=== PATIENT | female | born 1940 | race Caucasian/White ===

== ENCOUNTER 2016-05-16 15:12 | Inpatient (IN) | payer MEDICARE, OTHER ==
[2016-05-16 15:23] VITALS: BMI 27.8
--- NOTE | 2016-05-16 16:56 | EDPRACDOC ---
- General Information Chief Complaint: Dyspnea/Resp distress Stated Complaint: SHOB Time Seen by Provider: 05/16/16 16:49 Information Source: Patient Mode Of Arrival: Car Home Medications: Home Medications Furosemide [Lasix] 40 mg PO DAILY 07/02/12 Levothyroxine [Synthroid, Levoxyl] 75 mcg PO DAILY 07/02/12 Nebivolol HCl [Bystolic] 10 mg PO HS 07/02/12 Simvastatin [Zocor] 20 mg PO HS 07/02/12 Albuterol/Ipratropium Neb [Duoneb] 3 ml NEB Q4-6H PRN 07/08/12 Alprazolam [Xanax] 0.25 mg PO DAILY PRN 07/08/12 Montelukast Sodium [Singulair] 10 mg PO QHS 07/08/12 Probiotic Blend [Mallory Q] 1 each PO DAILY 07/08/12 Budesonide [Pulmicort] 0.25 mg NEB BID 05/16/16 Calcium Carbonate [Calcium] 1,200 mg PO DAILY 05/16/16 Hormone Eyal Shot 1 each IM .MONTHLY 05/16/16 Lisinopril [Prinivil] 10 mg PO DAILY PRN 05/16/16 Metoprolol Tartrate [Lopressor] 25 mg PO DAILY PRN 05/16/16 Osteoarthritis Shot 1 each IM .MONTHLY 05/16/16 Vitamin B Complex [B Complex] 1 each PO DAILY 05/16/16 Allergies/Adverse Reactions: Allergies Allergy/AdvReac Type Severity Reaction Status Date / Time morphine Allergy Nausea/Vomi Verified 05/16/16 15:23 ting Sulfa (Sulfonamide Allergy Unknown Verified 05/16/16 15:23 Antibiotics) - History of Present Illness HPI: COUGH, CONGESTION, SOB FOR 2 DAYS. DID NOT TAKE BP MEDS TODAY. LAST PNA 3 YERS AGO, HAD BEEN VERY SICK WITH PNA IN THE PAST. Shortness of Breath: Moderate ED Past Medical History - History Reviewed Yes Nurses notes reviewed and agree except as marked - Patient Medical History Cardiac History: Reports: Hypertension Respiratory History: Reports: Asthma, COPD, Chronic Bronchitis, Pneumonia, Emphysema Musculoskeletal History: Reports: Arthritis, Osteoarthritis Systemic History: Reports: Cancer, Hypothyroidism Surgical History: Reports: Hysterectomy - Family Medical History Reports: Hypertension (MOM, DAD), Diabetes (MOM), Cancer (DAD), Stroke (MOM), Cardiac Disorders (MOM, DAD) EDM Review of Systems - Review of Systems ROS Negative Except as Marked: Yes All systems reviewed and were negative except as marked Constitutional: Fever, Loss of Appetite Eyes: No Symptoms Reported Throat: No Symptoms Reported Mouth: No Symptoms Reported - Physical Exam Constitutional: Alert (Awake), No apparent distress Oriented to: Time, Person, Place Last recorded Vital Signs: Last Vital Signs Temp 98.2 F 05/16/16 15:20 Pulse 107 05/16/16 15:20 Resp 20 05/16/16 15:20 BP 199/93 H 05/16/16 15:20 Pulse Ox 97 05/16/16 15:20 Oxygen Pulse Oxygen Saturation 97 O2 Device Nasal Cannula Oxygen Flow Rate 2 Fraction of Inspired Oxygen ( FIO2) - HEENT Head: Normal ( normocephalic) Eye Exam: Normal (PERRL, EOMI, Sclera white) Oropharynx: Normal (Pharynx:Moist without exudate,Gums-no swelling) TMJ: Normal Nose: No Symptoms Reported (septum midline) Neck: Normal (FROM, trachea at midline) - Respiratory/Cardiovascular Respiratory: Rhonchi (B/L). negative: Normal - CTA Cardiovascular: Normal (RRR without murmur, gallop or rub) - GI Auscultation: Normal (NABS) Palpation: Normal (Soft,No rebound or guarding, non distended) Tenderness: Non tender Nobles's Sign: Negative - Musculoskeletal Back: Normal (Non-Tender) Extremities: Normal (Normal tone, Pulses 2+ No cyanosis or edema, FROM) - Integumentary Skin: Normal, Warm, Dry Lymphatics: Normal (no adenopathy) - Neurologic Memory Impaired: Normal Motor Function: Normal (Normal tone, Pulses 2+ No cyanosis or edema, FROM) Cranial Nerve: Normal (CN II-X11 intact sensation, strength 5/5) Cerebellar: Normal Mood Description: Normal Perception: Normal ED SOB MDM - Results Result Diagrams: 05/16/16 17:30 05/16/16 17:30 - EKG EKG #1 EKG Time: 17:24 -: Yes EKG interpreted by me Rate: bpm: 96 [place]: Normal Rhythm: NSR Block: None Hypertrophy: None ST: Normal Comments: normal ekg - Departure Yes I personally saw and evaluated the patient. 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
[2016-05-16] MEDS ORDERED: ALBUTEROL 0.083% 3 ML NEB NEB ONE (16:57)
[2016-05-16] MEDS ORDERED: Albuterol/Ipratropium Neb 3 ML NEB NEB ONE (16:57)
[2016-05-16 17:09] LABS: ALLEN'S TEST PASS; BEb 10.4 (+/- 2); TCO2 37.2 MMOL/L (23-27)
[2016-05-16 17:10] LABS: ABG Draw Site Right Radial
[2016-05-16 17:53] LABS: AUTOMATED BASOPHIL 1.1 % (0-2); AUTOMATED EOSINOPHIL 0.8 % (0-5); AUTOMATED LYMPH 23.1 % (17-44); AUTOMATED MONOCYTE 9.4 % (3-10); AUTOMATED NEUTROPHIL 65.6 % (45-76); MPV 9.5 fL (7.4-10.4)
[2016-05-16 17:59] LABS: BLOOD UREA NITROGEN 27 MG/DL (7-17); CALC CORRECTED 9.2 MG/DL (8.4-10.2); CALCIUM 8.8 MG/DL (8.4-10.2); CALCULATED OSMOLALITY 271 MOs/Kg (270-290); CHLORIDE 92 mEq/L (98-107); GLUCOSE 126 MG/DL (70-99); SODIUM LEVEL 137 mEq/L (137-146); TOTAL PROTEIN 6.7 G/DL (6.3-8.2)
[2016-05-16 18:06] LABS: PT-INR 1.1
--- NOTE | 2016-05-16 18:07 | DIRPT ---
CLINICAL DATA: Shortness of breath and fever. Cough, congestion for 2 days. EXAM: PORTABLE CHEST 1 VIEW COMPARISON: PET-CT 04/23/2015, chest radiographs 07/27/2012 FINDINGS: The lungs are hyperinflated with apical predominant emphysema. Bronchial thickening in the lower lobes, with questionable minimal patchy opacity at the right lung base. Heart size and mediastinal contours are normal, atherosclerosis noted of the aortic arch. No pulmonary edema, large pleural effusion or pneumothorax. The bones are under mineralized. IMPRESSION: Lower lobe bronchial thickening, with possible minimal patchy opacity at the right lung base, may reflect early pneumonia. Background emphysema. Electronically Signed By: Sagrario Peña M.D. On: 05/16/2016 18:04
[2016-05-16] MEDS ORDERED: CEFTRIAXONE 1 GM in D5W 100 ML IV ONE ×2 (18:15→21:36)
[2016-05-16] MEDS ORDERED: AZITHROMYCIN 500 MG in D5W 250 ML IV ONE (18:15)
--- NOTE | 2016-05-16 18:51 | HISTPHYS ---
- Chief Complaint shortness of breath - History of Present Illness PRIMARY CARE PROVIDER: Dr. Freitas HPI: The patient is a 76 yo woman with COPD and chronic respiratory failure on oxygen at home who presents with shortness of breath. Onset: about a week ago. Duration: intermittent. Character: can't get a good breath. Alleviated by: Nothing. Exacerbated by: Nothing. Associated Symptoms: Coughing productive of green sputum. Wheezing. Fever and chills. Had intermittent palpitations. This week had an episode of sharp pain going up the right posterior neck but resolved. Treatments: none at home except usual medications. Oxygen: 2.5 L NC O2 at home. She received her flu and pneumonia vaccinations approximately 05/06/16. - Medical History Cardiac History: Reports: Hypertension, Other (Frequently has tachycardia.) Respiratory History: Reports: COPD, Pneumonia, Other (Chronic respiratory failure, 2.5 L NC O2 at home.) GI/ History: Reports: Gastroesophageal Reflux (Schatzki's ring s/p dilatation , Dr. Chaudhary) Musculoskeletal History: Reports: Arthritis, Osteoarthritis Systemic History: Reports: Cancer (Breast: L (stage I) 20 yrs ago and R 2010 ( stage IIB).), Hypothyroidism ECHOCARDIOGRAM07/03/2012: EF > 55%. Left ventricular size, wall thickness, and systolic function are normal. Diastolic filling pattern indicates impaired relaxation. Mild aortic stenosis. Mild aortic regurgitation. Trace tricuspid regurgitation. EGD: 12/02/11, by Dr. Chaudhary: Schatzki ring status post esophageal dilatation. Small hiatal hernia. Oncology History: Followed by Dr. Zelda Sloan mastectomy over 20 years ago. Right breast cancer diagnosed 2010: Stage IIB ([id number]) hormone receptor positive right breast cancer ER/MI Positive. Her 2 Valencia negative. Ki 67 was 11%. Right mastectomy February [address] Smiley Pathology: 2.1 cm infiltrating ductal carcinoma with 1 intramammary node positive for metastasis. Patient was started on adjuvant hormonal head therapy with anastrozole in 2010 but she stopped it in 2011 because of abdominal pain. She started letrozole in 2013 that she was not compliant with the medication. A 2 cm mass in the right lateral chest wall was found in March 2015 to be an invasive ductal carcinoma (ER/MI Positive, her 2 Valencia negative) consistent with her primary breast cancer. PET scan revealed hypermetabolic activity in the mass and a hypermetabolic lesion in the left anterior acetabulum. The patient then decided she did not want aggressive chemotherapy. The patient was placed on monthly fulvestrant injections and denosumab, most recent injection 04/30/2016. - Surgical History Reports: Hysterectomy, Other (Bilateral mastectomy: L 20+yrs ago @[facility]. R 2010 @ [place], Dr. Smiley.) - Medictions/Allergies Allergies morphine Allergy (Verified 05/16/16 15:23) Nausea/Vomiting Sulfa (Sulfonamide Antibiotics) Allergy (Verified 05/16/16 15:23) Unknown DOES NOT REMEMBER Current Medication List: Reviewed Home Medications Furosemide [Lasix] 40 mg PO DAILY 07/02/12 Levothyroxine [Synthroid, Levoxyl] 75 mcg PO DAILY 07/02/12 Nebivolol HCl [Bystolic] 10 mg PO HS 07/02/12 Simvastatin [Zocor] 20 mg PO HS 07/02/12 Albuterol/Ipratropium Neb [Duoneb] 3 ml NEB Q4-6H PRN 07/08/12 Alprazolam [Xanax] 0.25 mg PO DAILY PRN 07/08/12 Montelukast Sodium [Singulair] 10 mg PO QHS 07/08/12 Probiotic Blend [Mallory Q] 1 each PO DAILY 07/08/12 Budesonide [Pulmicort] 0.25 mg NEB BID 05/16/16 Calcium Carbonate [Calcium] 1,200 mg PO DAILY 05/16/16 Hormone Eyal Shot 1 each IM .MONTHLY 05/16/16 Lisinopril [Prinivil] 10 mg PO DAILY PRN 05/16/16 Metoprolol Tartrate [Lopressor] 25 mg PO DAILY PRN 05/16/16 Nebulizer [Erapid Nebulizer] 1 each MC .UNKNOWN 05/16/16 Osteoarthritis Shot 1 each IM .MONTHLY 05/16/16 Vitamin B Complex [B Complex] 1 each PO DAILY 05/16/16 - Family History Reports: Hypertension (MOM, DAD), Diabetes (MOM), Cancer (DAD - lung cancer ( smoked)), Stroke (MOM), Cardiac Disorders (MOM, DAD), Respiratory Disorders ( Father: asthma) - Social History Travel Outside of [place] in the Last 3 Months?: No Smoking Status: Former smoker (Quit approx 2012. Previously 3ppd or more. Started 12yo. 180 pack-years) Social History: Denies: Alcohol Use, Substance Use Disorder - Review of Systems GENERAL: Fever and chills. Positive for fatigue/malaise. HEENT: No ear pain or discharge. No nasal discharge or bleeding. Has sore on inside of nostril. No throat pain or swelling. No eye pain or eye redness. RESPIRATORY: Cough, wheezing, and shortness of breath. CARDIOVASCULAR: No chest pain. Had intermittent palpitations. GI: No abdominal pain, nausea, vomiting, diarrhea, constipation, or bloody stool. NEUROLOGICAL: No headache or focal weakness. INTEGUMENT: no rashes, itching, or lesions. LYMPHATIC SYSTEM: no lymph node swelling or pain. MUSCULOSKELETAL: no pain or joint swelling. GENITOURINARY: No dysuria or hematuria. ENDOCRINE: No polyuria or polydipsia. HEME: No chronic anemia, bleeding. Positive for easy bruising. - Physical Exam Vital Signs: Initial Vitals Temperature 98.2 F 05/16/16 15:20 Pulse Rate 107 05/16/16 15:20 Respiratory Rate 20 05/16/16 15:20 Blood Pressure 199/93 H 05/16/16 15:20 Pulse Oxygen Saturation 97 05/16/16 15:20 Vital Signs - 24 hr 05/16/16 05/16/16 05/16/16 15:20 17:00 17:30 Temperature 98.2 F Pulse Rate 107 96 Respiratory 20 20 24 Rate Blood Pressure 199/93 H 145/81 Pulse Oxygen 97 98 Saturation 05/16/16 17:50 Temperature Pulse Rate 96 Respiratory 20 Rate Blood Pressure 135/73 Pulse Oxygen 98 Saturation Weight: 71.2 kg Height: 5 feet 3 inches BMI: 27.8 - Other Exam Other Exam Findings: GENERAL: Ill-appearing, well nourished, in acute distress. HEENT: Normocephalic, atraumatic; pupils equal and round. Nares patent, without discharge or bleeding. No oropharyngeal lesions or erythema. Mucous membranes are dry. NECK: is supple, no masses, trachea midline. RESPIRATORY: Clear to auscultation bilaterally. Chest wall movements are symmetric. No use of accessory muscles to breathe. Intermittent tachypnea. Bilateral inspiratory and expiratory wheezing. Rhonchi. No rales. CARDIOVASCULAR: Normal S1, S2. Murmur 2/6 systolic. No rubs, or gallops. PMI non -displaced. Carotids: no carotid bruits. No bradycardia or tachycardia. DP pulses 2+ bilaterally. GI: soft, nontender, non-distended, normal active bowel sounds. No hepatosplenomegaly. INTEGUMENT: Clean, dry, and intact. No rashes. No lesions. MUSCULOSKELETAL: Moving all extremities. No cyanosis. No clubbing. Edema: none bilaterally. NEUROLOGICAL: Cranial nerves 2-12 grossly intact. Motor 4/5 throughout. Reflexes : 2+ bilaterally. Babinski: toes downgoing bilaterally. Intact Finger to nose. Sensory grossly intact to light touch. Intact rapid alternating movements bilaterally. No pronator drift. PSYCHIATRIC: Fully oriented. Flat affect. LYMPHATIC: No cervical lymphadenopathy. No supraclavicular lymphadenopathy. - Lab Results Laboratory Results - last 24 hr 05/16/16 05/16/16 05/16/16 17:05 17:30 17:30 WBC 7.4 RBC 4.27 Hgb 12.9 Hct 38.0 MCV 89 MCH 30.2 MCHC 34.0 RDW 13.2 Plt Count 192 MPV 9.5 Neut % (Auto) 65.6 Lymph % (Auto) 23.1 [place] % (Auto) 9.4 Eos % (Auto) 0.8 Baso % (Auto) 1.1 Absolute Neuts (auto) 4.81 Absolute Lymphs (auto) 1.70 PT INR APTT Puncture Site Right radial pH 7.470 H pCO2 49.0 H pO2 74.0 L HCO3 35.7 H Total CO2 37.2 H Base Excess 10.4 H FiO2 % 2 lpm nc Specimen Drawn By Belja Sodium 137 Potassium 2.8 L Chloride 92 L Carbon Dioxide 33 Anion Gap 15 BUN 27 H Creatinine 1.10 H Estimated GFR (MDRD) 48 L Glucose 126 H Calculated Osmolality 271 Calcium 8.8 Corrected Calcium 9.2 Total Bilirubin 0.4 AST 32 ALT 30 Alkaline Phosphatase 60 Troponin I < 0.01 [id number]-Lptpgtlaqdt Pept 298 Total Protein 6.7 Albumin 3.6 05/16/16 17:30 WBC RBC Hgb Hct MCV MCH MCHC RDW Plt Count MPV Neut % (Auto) Lymph % (Auto) [place] % (Auto) Eos % (Auto) Baso % (Auto) Absolute Neuts (auto) Absolute Lymphs (auto) PT 11.4 H INR 1.1 APTT 27.0 Puncture Site pH pCO2 pO2 HCO3 Total CO2 Base Excess FiO2 % Specimen Drawn By Sodium Potassium Chloride Carbon Dioxide Anion Gap BUN Creatinine Estimated GFR (MDRD) Glucose Calculated Osmolality Calcium Corrected Calcium Total Bilirubin AST ALT Alkaline Phosphatase Troponin I [id number]-[id number] Pept Total Protein Albumin - Diagnostic Findings DIAGNOSTIC DATA: EK bpm. Sinus rhythm with short p.r.n.. Possible left atrial enlargement. Possible septal infarct, age undetermined. Reviewed EKG personally. IMAGING: Chest x-ray, viewed personally: EXAM: PORTABLE CHEST 1 VIEW COMPARISON: PET-CT 04/23/2015, chest radiographs 07/27/2012 FINDINGS: The lungs are hyperinflated with apical predominant emphysema. Bronchial thickening in the lower lobes, with questionable minimal patchy opacity at the right lung base. Heart size and mediastinal contours are normal, atherosclerosis noted of the aortic arch. No pulmonary edema, large pleural effusion or pneumothorax. The bones are under mineralized. IMPRESSION: Lower lobe bronchial thickening, with possible minimal patchy opacity at the right lung base, may reflect early pneumonia. Background emphysema. - Assessment (1) Bacterial pneumonia J15.9 - UNSPECIFIED BACTERIAL PNEUMONIA Acute Present on Admission: Yes Pneumonia. Severe. Requiring continuous oxygen support. Type: Community acquired pneumonia. Criteria for diagnosis: Chest x-ray suggestive of pneumonia, rhonchi on physical exam. Likely bacterial. Plan: Sputum culture has been ordered. Treat with IV ceftriaxone and IV azithromycin. Monitor oxygen saturation levels. (2) COPD exacerbation J44.1 - CHRONIC OBSTRUCTIVE PULMONARY DISEASE W (ACUTE) EXACERBATION Acute Present on Admission: Yes COPD exacerbation, severe. Plan: Nebs of Duoneb q 6 hours scheduled and albuterol q 2 hours prn. Sputum culture ordered. IV ceftriaxone and IV azithromycin. IV methylprednisolone. Continuous oxygen support. Keep sats below 95% due to COPD. (3) Hypokalemia E87.6 - HYPOKALEMIA Acute Present on Admission: Yes Replace potassium with KCl. Check magnesium level and replace as needed. Update: patient states KCl tabs make her sick and cause pain; she refuses. Changed to KCl IV. Update: Patient states IV KCl is burning. New plan: patient agrees to LIQUID potassium. Take with food. If she experiences pain then will give pain medication. (4) Essential (primary) hypertension I10 - ESSENTIAL (PRIMARY) HYPERTENSION Acute Present on Admission: Yes Continue home medications. Patient takes the Bystolic daily and scheduled. She takes the metoprolol only PRN for a fast heart rate. IV hydralazine prn if bp still elevated. (5) Breast cancer C50.919 - MALIGNANT NEOPLASM OF UNSP SITE OF UNSPECIFIED FEMALE BREAST Acute Present on Admission: Yes Oncology History: Followed by Dr. Zelda Sloan mastectomy over 20 years ago. Right breast cancer diagnosed 2010: Stage IIB ([id number]) hormone receptor positive right breast cancer ER/MI Positive. Her 2 Valencia negative. Ki 67 was 11%. Right mastectomy February [address] Smiley Pathology: 2.1 cm infiltrating ductal carcinoma with 1 intramammary node positive for metastasis. Patient was started on adjuvant hormonal head therapy with anastrozole in 2010 but she stopped it in 2011 because of abdominal pain. She started letrozole in 2013 that she was not compliant with the medication. A 2 cm mass in the right lateral chest wall was found in March 2015 to be an invasive ductal carcinoma (ER/MI Positive, her 2 Valencia negative) consistent with her primary breast cancer. PET scan revealed hypermetabolic activity in the mass and a hypermetabolic lesion in the left anterior acetabulum. The patient then decided she did not want aggressive chemotherapy. The patient was placed on monthly fulvestrant injections and denosumab, most recent injection 04/30/2016. Plan: Follow up with Dr. Ndiaye as scheduled. Case Care Discussed with: Patient, Nursing Staff Total Time: 70 min
[2016-05-16] MEDS ORDERED: POTASSIUM CHLORIDE 20 MEQ TAB PO SCH (20:00)
[2016-05-16] MEDS ORDERED: LISINOPRIL 10 MG TAB PO PRN (21:32)
[2016-05-16] MEDS ORDERED: METOPROLOL TARTRATE 25 MG TAB PO PRN (21:32)
[2016-05-16] MEDS ORDERED: Magnesium Sulfate 2 gm/D5W 2 GM/50 ML RTU IV ONE (21:44)
[2016-05-16] MEDS: KCl 10 mEq/100 ml Premix (Run) 10 MEQ/100 ML RTU IV SCH (22:01)
[2016-05-16] MEDS: SIMVASTATIN 20 MG TAB PO SCH (22:13)
[2016-05-16] MEDS: NEBIVOLOL HCL 10 MG TAB PO SCH (22:13)
[2016-05-16] MEDS: MONTELUKAST SODIUM 10 MG TAB PO SCH (22:13)
[2016-05-16 22:37] LABS: LEUKOCYTES/URINE 2+ (NEGATIVE); NITRITE/URINE NEG (NEGATIVE); URINE OCCULT BLOOD NEG (NEG/TRACE)
[2016-05-17] MEDS ORDERED: BENZONATATE 100 MG PERLES PO PRN (00:15)
[2016-05-17] MEDS ORDERED: PROMETHAZINE 25 MG/ML VIAL IV PRN (00:15)
[2016-05-17] MEDS ORDERED: ACETAMINOPHEN 325 MG/TAB TABLET PO PRN (00:15)
[2016-05-17] MEDS ORDERED: ONDANSETRON HCL 4 MG/2 ML VIAL IV PRN (00:15)
[2016-05-17] MEDS ORDERED: BISACODYL 5 MG TAB PO PRN (00:15)
[2016-05-17] MEDS ORDERED: Docusate Sodium 100 MG CAP PO PRN (00:15)
[2016-05-17] MEDS ORDERED: GUAIFEN 100 MG-DEXTROMETH 10 MG PER 5 ML PO PRN (00:15)
[2016-05-17] MEDS ORDERED: TEMAZEPAM 15 MG CAP PO PRN (00:15)
[2016-05-17] MEDS ORDERED: SENNA CONCENTRATE TAB PO PRN (00:15)
[2016-05-17] MEDS ORDERED: SIMETHICONE 80 MG TAB PO PRN (00:15)
[2016-05-17] MEDS ORDERED: ACETAMINOPHEN 325 MG SUPP PR PRN (00:15)
[2016-05-17] MEDS: Albuterol/Ipratropium Neb 3 ML NEB NEB SCH ×4 (00:52→19:30)
[2016-05-17] MEDS: BUDESONIDE 0.25 MG NEB NEB SCH ×3 (00:52→19:35)
[2016-05-17] MEDS: ENOXAPARIN 40 MG/0.4 ML PFS SQ SCH ×2 (01:17→21:02)
[2016-05-17] MEDS ORDERED: POTASSIUM CHLORIDE 20 MEQ/15 ML ORAL SOLN PO ONE (01:39)
[2016-05-17] MEDS: KCl 10 mEq/100 ml Premix (Run) 10 MEQ/100 ML RTU IV SCH ×2 (02:53→02:54)
[2016-05-17 07:33] LABS: MPV 9.4 fL (7.4-10.4)
[2016-05-17 07:41] LABS: BLOOD UREA NITROGEN 22 MG/DL (7-17); CALCIUM 8.7 MG/DL (8.4-10.2); CALCULATED OSMOLALITY 267 MOs/Kg (270-290); CHLORIDE 94 mEq/L (98-107); GLUCOSE 102 MG/DL (70-99); SODIUM LEVEL 137 mEq/L (137-146)
[2016-05-17] MEDS: POTASSIUM CHLORIDE 20 MEQ/15 ML ORAL SOLN PO SCH ×3 (07:49→17:03)
[2016-05-17] MEDS: LISINOPRIL 10 MG TAB PO SCH (07:50)
[2016-05-17] MEDS: LEVOTHYROXINE 75 MCG (0.075 MG) TAB PO SCH (07:50)
[2016-05-17] MEDS: FUROSEMIDE 40 MG TAB PO SCH (07:50)
[2016-05-17] MEDS ORDERED: VITAMIN B COMPLEX PO SCH (09:00)
[2016-05-17] MEDS ORDERED: CALCIUM CARBONATE 1200 MG PO SCH (09:00)
[2016-05-17] MEDS ORDERED: Vaccine Screening Complete SCH (10:00)
[2016-05-17] MEDS: CALCIUM CARBONATE 500 MG TAB PO SCH (11:31)
[2016-05-17] MEDS: PROBIOTIC BLEND TAB PO SCH (11:32)
[2016-05-17] MEDS ORDERED: GUAIFENESIN 600 MG LA TAB PO PRN (13:28)
[2016-05-17] MEDS: METHYLPREDNISOLONE 125 MG/2 ML VIAL IV SCH ×2 (14:40→21:02)
--- NOTE | 2016-05-17 16:34 | GENMEDPROG ---
Subjective Note: Patient with no new complaints. Admitted with severe exacerbation of CHRONIC OBSTRUCTIVE PULMONARY DISEASE. She currently is having a lot of congestion but unable to bring it up. Blood pressure is markedly elevated yesterday but improved today. Admission diagnoses consistent with CHRONIC OBSTRUCTIVE PULMONARY DISEASE exacerbation and pneumonia. Notes Reviewed: Yes Events from last night noted and discussed with Clinical Staff Current Medication List: Reviewed Currently: Reports: Cough, [place], SOB. Denies: Fever/Chills DVT Prophylaxis: Yes - Physical Examination Vital Signs and I&O: Last Vital Signs Temp 98.4 F 05/17/16 13:45 Pulse 75 05/17/16 13:45 Resp 18 05/17/16 13:45 BP 117/54 L 05/17/16 13:45 Pulse Ox 96 05/17/16 13:45 Oxygen Pulse Oxygen Saturation 96 O2 Device Nasal Cannula Oxygen Flow Rate 2 Fraction of Inspired Oxygen ( FIO2) Intake & Output 05/14/16 05/15/16 05/16/16 05/17/16 23:59 23:59 23:59 23:59 Intake Total 100 493 Output Total 50 1250 Balance 50 -757 Patient's weight 69.445 kg General: Alert, Oriented x3, No acute distress, Well appearing, Well nourished HEENT: Normal (Normocephalic, atraumatic;EOMI.Sclera white, Nares patent, without discharge or bleeding. No oropharyngeal lesions or erythema. Mucous membranes are dry.) Neck: Non-tender, Full range of motion, Normal Trachea alignment, Normal inspection (No cervical lymphadenopathy. No supraclavicular lymphadenopathy.), No Masses palpable, Supple Lymphatics: Normal (no adenopathy) Respiratory: Rhonchi (B/L), Wheezes. negative: Normal - CTA Cardiovascular: Regular rate and rhythm (No bradycardia or tachycardia), Normal S1, No Gallops,Rubs/Murmurs, Normal S2, Good Pedal Pulses (DP pulses 2+ bilaterally) GI: Normal bowel sounds (normal active sounds), Soft (non-distended), Non tender , No hepatospenomegaly, No masses Extremities/Musculoskeletal: Normal pulses (DP pulses 2+ bilaterally) Skin: Warm,Dry and Intact, No rashes, No significant lesion Neurological: Strength at 5/5 X4 ext (Motor 5/5 throughout.), Normal tone, Cranial nerves 3-12 NL ( 2-12 grossly intact.) Lab/DI/Studies Reviewed: Abnormal Lab Results 05/16/16 05/16/16 05/16/16 17:05 17:30 17:30 RBC Hgb Hct PT 11.4 H pH 7.470 H pCO2 49.0 H pO2 74.0 L HCO3 35.7 H Total CO2 37.2 H Base Excess 10.4 H Potassium 2.8 L Chloride 92 L BUN 27 H Creatinine 1.10 H Estimated GFR (MDRD) 48 L Glucose 126 H Calculated Osmolality Urine Protein Ur Leukocyte Esterase Urine WBC 05/16/16 05/17/16 05/17/16 22:09 06:38 06:38 RBC 3.86 L Hgb 11.7 L Hct 34.2 L PT pH pCO2 pO2 HCO3 Total CO2 Base Excess Potassium 3.2 L Chloride 94 L BUN 22 H Creatinine Estimated GFR (MDRD) Glucose 102 H Calculated Osmolality 267 L Urine Protein 1+ H Ur Leukocyte Esterase 2+ H Urine WBC 10-20 H - Assessment (1) Bacterial pneumonia Acute J15.9 - UNSPECIFIED BACTERIAL PNEUMONIA Comment/Plan: Continue current antibiotic management. (2) COPD exacerbation Acute J44.1 - CHRONIC OBSTRUCTIVE PULMONARY DISEASE W (ACUTE) EXACERBATION Comment/Plan: COPD exacerbation, severe. Plan: Nebs of Duoneb q 6 hours scheduled and albuterol q 2 hours prn. Sputum culture ordered. IV ceftriaxone and IV azithromycin. IV methylprednisolone. Continuous oxygen support. Keep sats below 95% due to COPD. (3) Hypokalemia Acute E87.6 - HYPOKALEMIA Comment/Plan: Patient tolerating oral liquid potassium. Will continue present management (4) Essential (primary) hypertension Acute I10 - ESSENTIAL (PRIMARY) HYPERTENSION Comment/Plan: Continue home medications. Patient takes the Bystolic daily and scheduled. She takes the metoprolol only PRN for a fast heart rate. IV hydralazine prn if bp still elevated. (5) Breast cancer Acute C50.919 - MALIGNANT NEOPLASM OF UNSP SITE OF UNSPECIFIED FEMALE BREAST Qualifiers: Laterality: bilateral Comment/Plan: Oncology History: Followed by Dr. Zelda Sloan mastectomy over 20 years ago. Right breast cancer diagnosed 2010: Stage IIB ([id number]) hormone receptor positive right breast cancer ER/[place] Positive. Her 2 Valencia negative. Ki 67 was 11%. Right mastectomy February [address] Smiley Pathology: 2.1 cm infiltrating ductal carcinoma with 1 intramammary node positive for metastasis. Patient was started on adjuvant hormonal head therapy with anastrozole in 2010 but she stopped it in 2011 because of abdominal pain. She started letrozole in 2013 that she was not compliant with the medication. A 2 cm mass in the right lateral chest wall was found in March 2015 to be an invasive ductal carcinoma (ER/[place] Positive, her 2 Valencia negative) consistent with her primary breast cancer. PET scan revealed hypermetabolic activity in the mass and a hypermetabolic lesion in the left anterior acetabulum. The patient then decided she did not want aggressive chemotherapy. The patient was placed on monthly fulvestrant injections and denosumab, most recent injection 04/30/2016. Plan Dr. Ndiaye to see patient in the hospital. - Plan Continue present care to treat underlying CHRONIC OBSTRUCTIVE PULMONARY DISEASE exacerbation and pneumonia. Disposition Plan: Hopefully home soon Case Care Discussed with: Patient, Family Education/Counseling Given To: Patient, Family Member Education/Counseling Given Regarding: Diagnosis, Treatment, Prognosis, Follow Up , Disposition Plan Total Time: 45 minutes Critical Care: No Couseling Time (>50% in counseling/coordination): No
[2016-05-17] MEDS: AZITHROMYCIN 500 MG in D5W 250 ML IV SCH (17:03)
[2016-05-17] MEDS: NEBIVOLOL HCL 10 MG TAB PO SCH (21:03)
[2016-05-17] MEDS: SIMVASTATIN 20 MG TAB PO SCH (21:03)
[2016-05-17] MEDS: MONTELUKAST SODIUM 10 MG TAB PO SCH (21:03)
[2016-05-17] MEDS ORDERED: NS 500 ML IV ONE (22:36)
[2016-05-17] MEDS: CEFTRIAXONE 1 GM in D5W 100 ML IV SCH (23:38)
[2016-05-18] MEDS: Albuterol/Ipratropium Neb 3 ML NEB NEB SCH ×4 (01:24→19:02)
[2016-05-18] MEDS: METHYLPREDNISOLONE 125 MG/2 ML VIAL IV SCH ×4 (02:13→21:57)
[2016-05-18] MEDS: BUDESONIDE 0.25 MG NEB NEB SCH ×2 (07:39→19:05)
[2016-05-18] MEDS: POTASSIUM CHLORIDE 20 MEQ/15 ML ORAL SOLN PO SCH ×3 (09:26→16:55)
[2016-05-18] MEDS: FUROSEMIDE 40 MG TAB PO SCH (09:26)
[2016-05-18] MEDS: LEVOTHYROXINE 75 MCG (0.075 MG) TAB PO SCH (09:27)
[2016-05-18] MEDS: LISINOPRIL 10 MG TAB PO SCH (09:27)
[2016-05-18] MEDS: CALCIUM CARBONATE 500 MG TAB PO SCH (11:55)
[2016-05-18] MEDS: PROBIOTIC BLEND TAB PO SCH (11:55)
--- NOTE | 2016-05-18 13:11 | GENMEDPROG ---
Chief Complaint: Patient states she is feeling only slightly better. Subjective Note: 76-year-old female history of breast cancer now presents with a CHRONIC OBSTRUCTIVE PULMONARY DISEASE exacerbation and pneumonia. She uses 2-1/2 L of oxygen at home. She has been weaned down to her home dose of oxygen today. Notes Reviewed: Yes Events from last night noted and discussed with Clinical Staff Current Medication List: Reviewed Currently: Reports: Cough, LOUIS, SOB. Denies: Fever/Chills DVT Prophylaxis: Yes - Physical Examination Vital Signs and I&O: Last Vital Signs Temp 98.1 F 05/18/16 09:51 Pulse 87 05/18/16 09:51 Resp 18 05/18/16 09:51 BP 144/54 L 05/18/16 09:51 Pulse Ox 95 05/18/16 09:51 Oxygen Pulse Oxygen Saturation 95 O2 Device Nasal Cannula Oxygen Flow Rate 2 Fraction of Inspired Oxygen ( FIO2) Intake & Output 05/15/16 05/16/16 05/17/16 05/18/16 23:59 23:59 23:59 23:59 Intake Total 100 734 775 Output Total 50 2500 300 Balance 50 -1766 475 Patient's weight 69.445 kg 69.944 kg General: Alert, Oriented x3, No acute distress, Well appearing, Well nourished HEENT: Normal (Normocephalic, atraumatic;EOMI.Sclera white, Nares patent, without discharge or bleeding. No oropharyngeal lesions or erythema. Mucous membranes are dry.) Neck: Non-tender, Full range of motion, Normal Trachea alignment, Normal inspection (No cervical lymphadenopathy. No supraclavicular lymphadenopathy.), No Masses palpable, Supple Lymphatics: Normal (no adenopathy) Respiratory: Rhonchi (B/L), Wheezes. negative: Normal - CTA Cardiovascular: Regular rate and rhythm (No bradycardia or tachycardia), Normal S1, No Gallops,Rubs/Murmurs, Normal S2, Good Pedal Pulses (DP pulses 2+ bilaterally) GI: Normal bowel sounds (normal active sounds), Soft (non-distended), Non tender , No hepatospenomegaly, No masses Extremities/Musculoskeletal: Normal pulses (DP pulses 2+ bilaterally) Skin: Warm,Dry and Intact, No rashes, No significant lesion Neurological: Strength at 5/5 X4 ext (Motor 5/5 throughout.), Normal tone, Cranial nerves 3-12 NL ( 2-12 grossly intact.) - Assessment (1) Bacterial pneumonia Acute J15.9 - UNSPECIFIED BACTERIAL PNEUMONIA Comment/Plan: Continue current antibiotic management. (2) COPD exacerbation Acute J44.1 - CHRONIC OBSTRUCTIVE PULMONARY DISEASE W (ACUTE) EXACERBATION Comment/Plan: Continue O2 support. Check patient ambulating on her home dose of oxygen in the morning. If it is greater than 88% she could potentially discharge home. (3) Hypokalemia Acute E87.6 - HYPOKALEMIA Comment/Plan: Patient tolerating oral liquid potassium. Will continue present management (4) Essential (primary) hypertension Acute I10 - ESSENTIAL (PRIMARY) HYPERTENSION Comment/Plan: Continue home medications. Patient takes the Bystolic daily and scheduled. She takes the metoprolol only PRN for a fast heart rate. IV hydralazine prn if bp still elevated. (5) Breast cancer Acute C50.919 - MALIGNANT NEOPLASM OF UNSP SITE OF UNSPECIFIED FEMALE BREAST Qualifiers: Laterality: bilateral Comment/Plan: Oncology History: Followed by Dr. Ndiaye L mastectomy over 20 years ago. Right breast cancer diagnosed 2010: Stage IIB ([id number]) hormone receptor positive right breast cancer ER/CO Positive. Her 2 Valencia negative. Ki 67 was 11%. Right mastectomy February [address] Smiley Pathology: 2.1 cm infiltrating ductal carcinoma with 1 intramammary node positive for metastasis. Patient was started on adjuvant hormonal head therapy with anastrozole in 2010 but she stopped it in 2011 because of abdominal pain. She started letrozole in 2013 that she was not compliant with the medication. A 2 cm mass in the right lateral chest wall was found in March 2015 to be an invasive ductal carcinoma (ER/CO Positive, her 2 Valencia negative) consistent with her primary breast cancer. PET scan revealed hypermetabolic activity in the mass and a hypermetabolic lesion in the left anterior acetabulum. The patient then decided she did not want aggressive chemotherapy. The patient was placed on monthly fulvestrant injections and denosumab, most recent injection 04/30/2016. Plan Dr. Ndiaye to see patient in the hospital. - Plan Patient responding fairly well to therapy. She is back on her usual dose of home oxygen at rest. Will check ambulating O2 sats on home O2 doses in a.m.. If stable patient will be discharged home. Medical team conference was held on the patient discussion of diagnosis treatments plans and prognosis as well as disposition. In addition to myself the following team members were present nursing, physical therapy, speech therapy, occupational therapy, case management, social work, nutrition, help desk representative , palliative care, and home health nursing. Input from each discipline was recieved and is incorporated in the plan of care in the medical record as well as in the plans in the progress notes. Disposition Plan: Hopefully home soon Case Care Discussed with: Patient, Family Education/Counseling Given To: Patient, Family Member Education/Counseling Given Regarding: Diagnosis, Treatment, Prognosis, Follow Up , Disposition Plan Total Time: 45 minutes Critical Care: No Couseling Time (>50% in counseling/coordination): No
[2016-05-18] MEDS: AZITHROMYCIN 500 MG in D5W 250 ML IV SCH (16:55)
[2016-05-18] MEDS: ENOXAPARIN 40 MG/0.4 ML PFS SQ SCH (16:55)
[2016-05-18] MEDS: ALPRAZOLAM 0.25 MG TAB PO PRN (19:04)
[2016-05-18] MEDS: ALBUTEROL 0.083% 3 ML NEB NEB PRN (21:29)
[2016-05-18] MEDS: NEBIVOLOL HCL 10 MG TAB PO SCH (21:56)
[2016-05-18] MEDS: MONTELUKAST SODIUM 10 MG TAB PO SCH (21:57)
[2016-05-18] MEDS: SIMVASTATIN 20 MG TAB PO SCH (21:57)
[2016-05-19] MEDS: CEFTRIAXONE 1 GM in D5W 100 ML IV SCH (01:04)
[2016-05-19] MEDS: METHYLPREDNISOLONE 125 MG/2 ML VIAL IV SCH ×3 (01:04→13:59)
[2016-05-19] MEDS: Albuterol/Ipratropium Neb 3 ML NEB NEB SCH ×5 (02:46→19:20)
[2016-05-19] MEDS: BUDESONIDE 0.25 MG NEB NEB SCH ×2 (07:22→19:22)
[2016-05-19 07:49] LABS: BLOOD UREA NITROGEN 30 MG/DL (7-17); CALCIUM 9.3 MG/DL (8.4-10.2); CALCULATED OSMOLALITY 275 MOs/Kg (270-290); CHLORIDE 98 mEq/L (98-107); GLUCOSE 155 MG/DL (70-99); SODIUM LEVEL 138 mEq/L (137-146)
[2016-05-19] MEDS: POTASSIUM CHLORIDE 20 MEQ/15 ML ORAL SOLN PO SCH ×3 (08:03→17:21)
[2016-05-19] MEDS: LEVOTHYROXINE 75 MCG (0.075 MG) TAB PO SCH (08:10)
[2016-05-19] MEDS: FUROSEMIDE 40 MG TAB PO SCH (08:10)
[2016-05-19] MEDS: LISINOPRIL 10 MG TAB PO SCH (08:11)
[2016-05-19] MEDS: ALBUTEROL 0.083% 3 ML NEB NEB PRN (11:17)
[2016-05-19] MEDS: CALCIUM CARBONATE 500 MG TAB PO SCH (11:32)
[2016-05-19] MEDS: PROBIOTIC BLEND TAB PO SCH (11:32)
[2016-05-19] MEDS: ALPRAZOLAM 0.25 MG TAB PO PRN (13:59)
[2016-05-19] MEDS: AZITHROMYCIN 500 MG in D5W 250 ML IV SCH (17:22)
[2016-05-19] MEDS: ENOXAPARIN 40 MG/0.4 ML PFS SQ SCH (17:23)
--- NOTE | 2016-05-19 17:23 | GENMEDPROG ---
Notes Reviewed: Yes Events from last night noted and discussed with Clinical Staff Current Medication List: Reviewed Currently: Reports: Cough, LOUIS, SOB. Denies: Fever/Chills DVT Prophylaxis: Yes - Physical Examination Vital Signs and I&O: Last Vital Signs Temp 97.9 F 05/19/16 14:00 Pulse 90 05/19/16 14:00 Resp 20 05/19/16 14:00 BP 151/77 05/19/16 14:00 Pulse Ox 94 05/19/16 14:00 Oxygen Pulse Oxygen Saturation 94 O2 Device Nasal Cannula Oxygen Flow Rate 2 Fraction of Inspired Oxygen ( FIO2) Intake & Output 05/16/16 05/17/16 05/18/16 05/19/16 23:59 23:59 23:59 23:59 Intake Total 901 662 3206 771 Output Total 50 2500 700 400 Balance 50 -8922 315 371 Patient's weight 69.445 kg 69.944 kg 69.763 kg General: Alert, Oriented x3, No acute distress, Well appearing, Well nourished HEENT: Normal (Normocephalic, atraumatic;EOMI.Sclera white, Nares patent, without discharge or bleeding. No oropharyngeal lesions or erythema. Mucous membranes are dry.) Neck: Non-tender, Full range of motion, Normal Trachea alignment, Normal inspection (No cervical lymphadenopathy. No supraclavicular lymphadenopathy.), No Masses palpable, Supple Lymphatics: Normal (no adenopathy) Respiratory: Rhonchi (B/L), Wheezes. negative: Normal - CTA Cardiovascular: Regular rate and rhythm (No bradycardia or tachycardia), Normal S1, No Gallops,Rubs/Murmurs, Normal S2, Good Pedal Pulses (DP pulses 2+ bilaterally) GI: Normal bowel sounds (normal active sounds), Soft (non-distended), Non tender , No hepatospenomegaly, No masses Extremities/Musculoskeletal: Normal pulses (DP pulses 2+ bilaterally) Skin: Warm,Dry and Intact, No rashes, No significant lesion Neurological: Strength at 5/5 X4 ext (Motor 5/5 throughout.), Normal tone, Cranial nerves 3-12 NL ( 2-12 grossly intact.) - Assessment (1) Bacterial pneumonia Acute J15.9 - UNSPECIFIED BACTERIAL PNEUMONIA Comment/Plan: Continue current antibiotic management. (2) Breast cancer Acute C50.919 - MALIGNANT NEOPLASM OF UNSP SITE OF UNSPECIFIED FEMALE BREAST Qualifiers: Laterality: bilateral Comment/Plan: Oncology History: Followed by Dr. Ndiaye L mastectomy over 20 years ago. Right breast cancer diagnosed 2010: Stage IIB ([id number]) hormone receptor positive right breast cancer ER/SC Positive. Her 2 Valencia negative. Ki 67 was 11%. Right mastectomy February [address] Smiley Pathology: 2.1 cm infiltrating ductal carcinoma with 1 intramammary node positive for metastasis. Patient was started on adjuvant hormonal head therapy with anastrozole in 2010 but she stopped it in 2011 because of abdominal pain. She started letrozole in 2013 that she was not compliant with the medication. A 2 cm mass in the right lateral chest wall was found in March 2015 to be an invasive ductal carcinoma (ER/SC Positive, her 2 Valencia negative) consistent with her primary breast cancer. PET scan revealed hypermetabolic activity in the mass and a hypermetabolic lesion in the left anterior acetabulum. The patient then decided she did not want aggressive chemotherapy. The patient was placed on monthly fulvestrant injections and denosumab, most recent injection 04/30/2016. Plan Dr. Ndiaye to see patient in the hospital. (3) COPD exacerbation Acute J44.1 - CHRONIC OBSTRUCTIVE PULMONARY DISEASE W (ACUTE) EXACERBATION Comment/Plan: Continue O2 support. Check patient ambulating on her home dose of oxygen in the morning. If it is greater than 88% she could potentially discharge home. (4) Essential (primary) hypertension Acute I10 - ESSENTIAL (PRIMARY) HYPERTENSION Comment/Plan: Continue home medications. Patient takes the Bystolic daily and scheduled. She takes the metoprolol only PRN for a fast heart rate. IV hydralazine prn if bp still elevated.
[2016-05-19] MEDS ORDERED: METOPROLOL TARTRATE 25 MG TAB PO PRN (17:32)
[2016-05-19] MEDS ORDERED: PROBIOTIC BLEND TAB PO SCH (18:00)
[2016-05-19] MEDS: MONTELUKAST SODIUM 10 MG TAB PO SCH (21:09)
[2016-05-19] MEDS: NEBIVOLOL HCL 10 MG TAB PO SCH (21:09)
[2016-05-19] MEDS: SIMVASTATIN 20 MG TAB PO SCH (21:09)
[2016-05-20] MEDS: METHYLPREDNISOLONE 40 MG/1 ML VIAL IV SCH ×2 (00:59→14:04)
[2016-05-20] MEDS: CEFTRIAXONE 1 GM in D5W 100 ML IV SCH (00:59)
[2016-05-20] MEDS: Albuterol/Ipratropium Neb 3 ML NEB NEB SCH ×3 (01:12→13:14)
[2016-05-20] MEDS: BUDESONIDE 0.25 MG NEB NEB SCH (07:40)
[2016-05-20] MEDS: POTASSIUM CHLORIDE 20 MEQ/15 ML ORAL SOLN PO SCH ×2 (08:04→11:01)
[2016-05-20] MEDS: LEVOTHYROXINE 75 MCG (0.075 MG) TAB PO SCH (08:09)
[2016-05-20] MEDS: FUROSEMIDE 40 MG TAB PO SCH (08:09)
[2016-05-20] MEDS: LISINOPRIL 10 MG TAB PO SCH (08:09)
--- NOTE | 2016-05-20 08:50 | DIRPT ---
CLINICAL DATA: Pneumonia . EXAM: CHEST 2 VIEW COMPARISON: None. FINDINGS: Mediastinum and hilar structures are normal. Heart size stable. Mild bibasilar infiltrates and left mid lung infiltrates noted consistent with mild pneumonia. No pleural effusion or pneumothorax. COPD. Stable cardiomegaly . IMPRESSION: Very mild bibasilar and left mid lung field infiltrates consistent with mild pneumonia . COPD. Electronically Signed By: Juan José Dukes On: 05/20/2016 08:48
[2016-05-20] MEDS ORDERED: AZITHROMYCIN 250 MG TAB PO SCH (09:00)
[2016-05-20 11:00] VITALS: TEMP 98
[2016-05-20] MEDS: CALCIUM CARBONATE 500 MG TAB PO SCH (11:02)
[2016-05-20] MEDS: PROBIOTIC BLEND TAB PO SCH (11:02)
[2016-05-20 13:17] VITALS: BP 135/50; PULSE 67
--- NOTE | 2016-05-20 14:50 | PCM.DCS92 ---
- Final/Secondary Discharge Diagnosis (1) Bacterial pneumonia Acute J15.9 - UNSPECIFIED BACTERIAL PNEUMONIA Present on Admission: Yes Comment: Continue current antibiotic management. (2) Breast cancer Acute C50.919 - MALIGNANT NEOPLASM OF UNSP SITE OF UNSPECIFIED FEMALE BREAST Present on Admission: Yes bilateral Comment: Oncology History: Followed by Dr. Ndiaye L mastectomy over 20 years ago. Right breast cancer diagnosed 2010: Stage IIB ([id number]) hormone receptor positive right breast cancer ER/AZ Positive. Her 2 Valencia negative. Ki 67 was 11%. Right mastectomy February [address] Smiley Pathology: 2.1 cm infiltrating ductal carcinoma with 1 intramammary node positive for metastasis. Patient was started on adjuvant hormonal head therapy with anastrozole in 2010 but she stopped it in 2011 because of abdominal pain. She started letrozole in 2013 that she was not compliant with the medication. A 2 cm mass in the right lateral chest wall was found in March 2015 to be an invasive ductal carcinoma (ER/AZ Positive, her 2 Valencia negative) consistent with her primary breast cancer. PET scan revealed hypermetabolic activity in the mass and a hypermetabolic lesion in the left anterior acetabulum. The patient then decided she did not want aggressive chemotherapy. The patient was placed on monthly fulvestrant injections and denosumab, most recent injection 04/30/2016. Plan Dr. Ndiaye to see patient in the hospital. (3) COPD exacerbation Acute J44.1 - CHRONIC OBSTRUCTIVE PULMONARY DISEASE W (ACUTE) EXACERBATION Present on Admission: Yes Comment: Continue O2 support. Check patient ambulating on her home dose of oxygen in the morning. If it is greater than 88% she could potentially discharge home. (4) Essential (primary) hypertension Acute I10 - ESSENTIAL (PRIMARY) HYPERTENSION Present on Admission: Yes Comment: Continue home medications. Patient takes the Bystolic daily and scheduled. She takes the metoprolol only PRN for a fast heart rate. IV hydralazine prn if bp still elevated. Discharge Disposition: Home Discharge Condition: Improved Cognitive Discharge Status: Unimpaired Physician Follow up/Referrals: Rebecca Freitas MD [Primary Care Provider] - 06/03/16 10:00 am New Prescriptions: Azithromycin [Zithromax] 500 mg PO DAILY #6 tablet Cefdinir [Omnicef] 300 mg PO BID #10 capsule Probiotic Blend [Mallory Q] 1 each PO DAILY #20 tablet Discharge Home Medication List Furosemide [Lasix] 40 mg PO DAILY 07/02/12 [History Confirmed 05/16/16 Last Taken 05/15/16] Levothyroxine [Synthroid, Levoxyl] 75 mcg PO DAILY 07/02/12 [History Confirmed 05/16/16 Last Taken 05/16/16] Nebivolol HCl [Bystolic] 10 mg PO HS 07/02/12 [History Confirmed 05/16/16 Last Taken 05/15/16] Simvastatin [Zocor] 20 mg PO HS 07/02/12 [History Confirmed 05/16/16 Last Taken 05/15/16] Albuterol/Ipratropium Neb [Duoneb] 3 ml NEB Q4-6H PRN 07/08/12 [History Confirmed 05/16/16 Last Taken 05/16/16] Alprazolam [Xanax] 0.25 mg PO DAILY PRN 07/08/12 [History Confirmed 05/16/16 Last Taken 07/07/12 17:00] Montelukast Sodium [Singulair] 10 mg PO QHS 07/08/12 [History Confirmed Last Taken 05/15/16] Budesonide [Pulmicort] 0.25 mg NEB BID 05/16/16 [History Confirmed 05/16/16 Last Taken 05/16/16] Calcium Carbonate [Calcium] 1,200 mg PO DAILY 05/16/16 [History Confirmed Last Taken 05/16/16] Hormone Eyal Shot 1 each IM .MONTHLY 05/16/16 [History Confirmed 05/16/16 Last Taken 04/25/16] Lisinopril [Prinivil] 10 mg PO DAILY PRN 05/16/16 [History Confirmed 05/16/16 Last Taken Unknown] Metoprolol Tartrate [Lopressor] 25 mg PO DAILY PRN 05/16/16 [History Confirmed 05/16/16 Last Taken Unknown] Nebulizer [Erapid Nebulizer] 1 each MC .UNKNOWN 05/16/16 [History Confirmed 06/01 Last Taken 05/16/16] Osteoarthritis Shot 1 each IM .MONTHLY 05/16/16 [History Confirmed 05/16/16 Last Taken 04/25/16] Vitamin B Complex [B Complex] 1 each PO DAILY 05/16/16 [History Confirmed Last Taken 05/15/16] Azithromycin [Zithromax] 500 mg PO DAILY #6 tablet 05/20/16 [Rx Last Taken Unknown] Cefdinir [Omnicef] 300 mg PO BID #10 capsule 05/20/16 [Rx Last Taken Unknown] Probiotic Blend [Mallory Q] 1 each PO DAILY #20 tablet 05/20/16 [Rx Last Taken Unknown] 05/17/16 06:38 05/19/16 06:40 Laboratory Results - last 24 hr 05/19/16 05/20/16 17:24 05:21 POC Capillary Glucose 125 H 126 H O2 Device: Nasal Cannula Oxygen Flow Rate: 2.25 Oxygen to be used after Discharge: Continuous Diet at Discharge: Regular - DC Summary Notes HPI/Notes: The patient is a 76 yo woman with COPD and chronic respiratory failure on oxygen at home who presents with shortness of breath. Onset: about a week ago. Duration: intermittent. Character: can't get a good breath. Alleviated by: Nothing. Exacerbated by: Nothing. Associated Symptoms: Coughing productive of green sputum. Wheezing. Fever and chills. Had intermittent palpitations. This week had an episode of sharp pain going up the right posterior neck but resolved. Treatments: none at home except usual medications. Oxygen: 2.5 L NC O2 at home. She received her flu and pneumonia vaccinations approximately 05/06/16. Hospital Course Note:: Discharge summary on patient named JESSICA VENEGAS admitted to [facility] on 05/16/16 by Bogdan Bryant MD. Date of discharge is 05/20/2016. CC: Dr. Freitas Total Time: 41 min Code: 04277 (>30min.) - Physical Exam Vital Signs: Last Vital Signs Temp 98.0 F 05/20/16 13:08 Pulse 67 05/20/16 13:08 Resp 18 05/20/16 13:08 BP 135/50 L 05/20/16 13:08 Pulse Ox 99 05/20/16 13:08 Oxygen Pulse Oxygen Saturation 99 O2 Device Nasal Cannula Oxygen Flow Rate 2.5 Fraction of Inspired Oxygen ( FIO2) Constitutional: Alert (Awake), No apparent distress Oriented to: Time, Person, Place - HEENT Head: Normal ( normocephalic) Eye: Normal (PERRL, EOMI, Sclera white) Oropharynx: Normal (Pharynx:Moist without exudate,Gums-no swelling) ENT EAC: Normal (No oropharyngeal lesions or erythema. Mucous membranes are dry. ) TMJ: Normal Nose: No Symptoms Reported (septum midline) - Respiratory/Cardiovascular Respiratory: Diminished, Rhonchi (B/L), Wheezes. negative: Normal - CTA, Rales Cardiovascular: Normal (RRR , Normal S1, S2. No murmurs, rubs, or gallops. PMI non-displaced. Carotids: no carotid bruits. No bradycardia or tachycardia. DP pulses 2+ bilaterally.) - GI Auscultation: Normal (NABS) Palpation: Normal (Soft,No rebound or guarding, non distended) Tenderness: Non tender Nobles's Sign: Negative - Musculoskeletal Back: Normal (Non-Tender) Extremities: Normal (Normal tone, Pulses 2+ No cyanosis or edema, FROM) - Integumentary Skin: Normal (Warm dry no rashes) Lymphatics: Normal (no adenopathy) - Neurologic Memory Impaired: Normal Cranial Nerve: Normal (CN II-XII intact sensation, strength 5/5) Cerebellar: Normal Mood Description: Normal Perception: Normal
== END 2016-05-20 16:39 | disposition home or self-care (01) | DRG 194 ==
LOC: ED 15:12 → MPS3 18:20
PROVIDERS: ADMIT Internal Medicine; ATTEND Internal Medicine
PROC: 039B3ZZ Drainage of Right Radial Artery, Percutaneous Approach (ICD-10-PCS; principal; 2016-05-16)
DX: J15.9 Unspecified bacterial pneumonia (principal); J44.1 Chronic obstructive pulmonary disease with (acute) exacerbation; C50.911 Malignant neoplasm of unspecified site of right female breast; J44.0 Chronic obstructive pulmonary disease with (acute) lower respiratory infection; Z99.81 Dependence on supplemental oxygen; C50.912 Malignant neoplasm of unspecified site of left female breast; I10 Essential (primary) hypertension; K21.9 Gastro-esophageal reflux disease without esophagitis; M19.90 Unspecified osteoarthritis, unspecified site; E03.9 Hypothyroidism, unspecified; Z90.11 Acquired absence of right breast and nipple; E87.6 Hypokalemia; Z90.12 Acquired absence of left breast and nipple
CPT/HCPCS: 36415; 36600; 71010; 71020; 80048; 80053; 81001; 82803; 82962; 83735; 83880; 84132; 84484; 85025; 85027; 85610; 85730; 87040; 87070; 87086; 87205; 87804; 93005; 94640; 96365; 96372; 98960; 99283; J0456; J0696; J1650; J2405; J2920; J2930; J3475; J3480; J3490; J7060; J7070; J7620